=== PATIENT | female | born 1995 | race African-American/Black ===

== ENCOUNTER 2019-05-06 21:57 | Emergency (ER) | payer MEDICAID ==
[~2019-05-06] VITALS: Ht 157.5 cm; Wt 68.0 kg
[2019-05-06] MEDS ORDERED: KETOROLAC 60MG/2ML VIAL IM STA (22:38)
[2019-05-07 01:10] VITALS: BP 115/69
== END 2019-05-07 01:11 | disposition home or self-care (01) ==
LOC: ER 21:57
DX: S80.02XA Contusion of left knee, initial encounter (principal); Y08.89XA Assault by other specified means, initial encounter; Y93.89 Activity, other specified; Y92.89 Other specified places as the place of occurrence of the external cause; Y99.8 Other external cause status
CPT/HCPCS: 73562; 81025; 96372; 99283; J1885